=== PATIENT | female | born 1940 | race Caucasian/White ===

== ENCOUNTER → 2021-12-20 | Outpatient (CLI) | payer MEDICARE, OTHER | END | disposition home or self-care (01) | LOC: RADMN 12:28 | PROVIDERS: ATTEND Podiatrist Foot & Ankle Surgery | DX: M19.071 Primary osteoarthritis, right ankle and foot (principal); M85.871 Other specified disorders of bone density and structure, right ankle and foot; M77.31 Calcaneal spur, right foot; I73.9 Peripheral vascular disease, unspecified; M20.41 Other hammer toe(s) (acquired), right foot; M79.671 Pain in right foot | CPT/HCPCS: 93926; 73630-TC ==

== ENCOUNTER 2023-01-18 05:31 | Day surgery (SDC) | payer MEDICARE, OTHER ==
[~2023-01-18] VITALS: Ht 165.1 cm; Wt 70.5 kg
[~2023-01-18 05:31] MED LIST: AMLO5TAB66 PO; FLUT16SP NASAL; LEVO100T4 PO; LOSA1TAB42 PO; RINGERS SOLUTION,LACTATED 1,000 ML IV ONE
[2023-01-18] MEDS ORDERED: PROPOFOL 1% 20 ML VIAL IVP ONE (05:32)
[2023-01-18] MEDS ORDERED: GLYCOPYRROLATE 0.2 MG/ML VIAL IM ONE (05:32)
[2023-01-18] MEDS ORDERED: MIDAZOLAM HCL 2 MG/2 ML VIAL IVP ONE (05:32)
[2023-01-18] MEDS ORDERED: LIDOCAINE/PF 2% 5 ML VIAL IM ONE (05:32)
[2023-01-18] MEDS ORDERED: KETOROLAC TROMETHAMINE 60 MG/2 ML VIAL IM ONE (05:32)
[2023-01-18] MEDS ORDERED: FentaNYL CITRATE PF 100 MCG/2 ML VIAL IVP ONE (05:32)
[2023-01-18 06:08] LABS: BASOPHILS % (AUTO) 0.7 % (0.0-2.0); EOSINOPHILS % (AUTO) 1.3 % (1.0-6.0); HEMATOCRIT 40.2 % (36-46); HEMOGLOBIN 13.2 g/dL (12.0-16.0); LYMPHOCYTES # (AUTO) 2.8 K/uL (1.0-4.8); LYMPHOCYTES % (AUTO) 29.9 % (22.0-44.0); MEAN CORPUSCULAR HGB CONC 32.7 G/dL (31.0-37.0); MEAN CORPUSCULAR VOLUME 89 fL (80-100); MONOCYTES # (AUTO) 0.7 K/uL (0.1-1.0); MONOCYTES % (AUTO) 7.4 % (2.0-9.0); NEUTROPHILS # (AUTO) 5.6 K/uL (1.8-7.7); NEUTROPHILS % (AUTO) 60.7 % (40.0-70.0); PLATELET COUNT (AUTO) 274 K/uL (150-450); RED BLOOD CELL COUNT(AUTO) 4.54 MIL/uL (4.00-5.20); RED CELL DISTRIBUTION WIDTH 13.8 % (11.5-14.5)
[2023-01-18 06:14] LABS: CREATININE 1.12 mg/dL (0.60-1.30)
[2023-01-18] MEDS ORDERED: SODIUM CHLORIDE 0.9% 0 ML ONE (06:30)
[2023-01-18] MEDS ORDERED: LIDOCAINE/PF 1% 30 ML VIAL ONE (06:30)
[2023-01-18] MEDS ORDERED: BUPIVACAINE HCL/PF 0.5% 30 ML VIAL ONE (06:30)
[2023-01-18] MEDS ORDERED: VANCOMYCIN HCL 1 GM/VIAL ONE (06:53)
[2023-01-18] MEDS ORDERED: ETHYL ALCOHOL 62% ANTISEPTIC NASAL SANITIZER 0.6 ML AMPUL NASAL ONE (07:00)
[2023-01-18] MEDS ORDERED: ACETAMINOPHEN 1000 MG/ISO-OSM 100 ML IV ONE (07:50)
[2023-01-18] MEDS ORDERED: LIDOCAINE 1% 20 ML VIAL PERC ONE (08:58)
== END 2023-01-18 10:05 | disposition home or self-care (01) ==
LOC: SURGERY 05:31
PROVIDERS: ATTEND Podiatrist Foot & Ankle Surgery
DX: M20.41 Other hammer toe(s) (acquired), right foot (principal); M20.5X1 Other deformities of toe(s) (acquired), right foot; I10 Essential (primary) hypertension; Z79.899 Other long term (current) drug therapy
CPT/HCPCS: 28285 ×3; 80048; 85025; 36415; 88305; 88311; 93005; J3490 ×5; J2704; J0690; J3010; J1885; J2250; J7120; J0131; J3370; J7030